=== PATIENT | female | born 1965 | race American Indian/Alaskan Native ===

== ENCOUNTER 2019-11-26 00:49 | Emergency (ER) | payer OTHER ==
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
[2019-11-26 05:56] VITALS: BP 156/97
== END 2019-11-26 06:02 | disposition home or self-care (01) ==
LOC: ED 00:49
DX: I10 Essential (primary) hypertension (principal); V89.2XXA Person injured in unspecified motor-vehicle accident, traffic, initial encounter; Y93.89 Activity, other specified; Y92.410 Unspecified street and highway as the place of occurrence of the external cause; Y99.8 Other external cause status
CPT/HCPCS: 99282